=== PATIENT | male | born 1955 | race Two or more races ===

== ENCOUNTER 2020-05-28 22:40 | Emergency (ER) | payer OTHER ==
[~2020-05-28] VITALS: Ht 165.1 cm; Wt 83.9 kg
[2020-05-28] MEDS ORDERED: ULTRAM50 MG (23:19)
[2020-05-28] MEDS ORDERED: XANAX1 MG (23:19)
[2020-05-28] MEDS ORDERED: PROTONIX40 MG (23:20)
[2020-05-28] MEDS ORDERED: BUPROPION HCL200 M1 (23:20)
[2020-05-28] MEDS ORDERED: VALACYCLOVIR1000 MG (23:21)
[2020-05-28] MEDS ORDERED: ZESTRIL40 M1 (23:21)
[2020-05-28] MEDS ORDERED: L-ARGININE1000 MG (23:21)
[2020-05-28] MEDS ORDERED: QUETIAPINE FUM400 M1 (23:22)
[2020-05-28] MEDS ORDERED: MIRTAZAPINE15 M1 (23:22)
[2020-05-28] MEDS ORDERED: SIMVASTATIN5 MG (23:22)
[2020-05-28] MEDS ORDERED: ARICEPT10 MG (23:22)
[2020-05-28] MEDS ORDERED: ECOTRIN81 MG (23:23)
[2020-05-28] MEDS ORDERED: MELATONIN3 M3 (23:23)
[2020-05-28] MEDS ORDERED: DORZOLAMIDE-TIM10 ML (23:24)
[2020-05-28] MEDS ORDERED: VITAMIN C1000 MG (23:24)
[2020-05-28] MEDS ORDERED: LEVOTHYROXINE50 MC1 (23:25)
[2020-05-29] MEDS ORDERED: PEPCID AC20 MG PO (01:59)
== END 2020-05-29 02:03 | disposition home or self-care (01) ==
LOC: ER 22:40
DX: K29.70 Gastritis, unspecified, without bleeding (principal); R10.13 Epigastric pain

== ENCOUNTER 2021-09-11 00:05 | Emergency (ER) | payer OTHER ==
[~2021-09-11] VITALS: Ht 165.1 cm; Wt 90.7 kg
[~2021-09-11 00:05] MED LIST: ARICEPT10 MG; BUPROPION HCL200 M1; DORZOLAMIDE-TIM10 ML; ECOTRIN81 MG; L-ARGININE1000 MG; LEVOTHYROXINE50 MC1; MELATONIN3 M3; MIRTAZAPINE15 M1; PEPCID AC20 MG PO; PROTONIX40 MG; QUETIAPINE FUM400 M1; SIMVASTATIN5 MG; ULTRAM50 MG; VALACYCLOVIR1000 MG; VITAMIN C1000 MG; XANAX1 MG; ZESTRIL40 M1
[2021-09-11] MEDS ORDERED: [UNRECOGNIZED DRUG - OTHER] (00:20)
[2021-09-11] MEDS ORDERED: PEPCID40 MG PO (05:40)
== END 2021-09-11 05:44 | disposition home or self-care (01) ==
LOC: ER 00:05
DX: K21.9 Gastro-esophageal reflux disease without esophagitis (principal); K29.70 Gastritis, unspecified, without bleeding; R07.9 Chest pain, unspecified; I10 Essential (primary) hypertension; Z88.8 Allergy status to other drugs, medicaments and biological substances; Z91.013 Allergy to seafood